=== PATIENT | female | born 1985 | race Caucasian/White ===

== ENCOUNTER 2017-07-10 05:55 | Day surgery (SDC) | payer BC ==
[~2017-07-10] VITALS: Ht 157.5 cm; Wt 61.2 kg
[~2017-07-10 05:55] MED LIST: ASPIR-LOW81 MG PO; BIOTIN10 MG PO; FLUOXETINE HCL20 MG PO; VITAMIN D35000 UNI1 PO
--- NOTE | 2017-07-10 08:50 | NUR ---
07/10/17 0850 Torrie Heredia 9394-PATIENT ARRIVED TO PACU ON 10L MASK O2 SAT 98% NONAROUSABLE. OLIVEROS CATHETER IN PLACE WITH MARIE PAD AND GAUZE. NO DRAINAGE NOTED. PATIENT TO GO HOME WITH 20 CC SYRINGE WILL REMOVE OWN OLIVEROS CATHETER AT HOME.
--- NOTE | 2017-07-10 09:29 | NUR ---
ICED WATER AND CRACKERS GIVEN. PT DRINKING AND EATING AND TOLERATING THAT WELL. CALL LIGHT W/IN REACH. FAMILY @ BS.
--- NOTE | 2017-07-10 09:41 | NUR ---
MORE ICED WATER GIVEN.
--- NOTE | 2017-07-10 11:31 | NUR ---
8125 DR NG CALLED AND PT CAN GO HOME WITH LEG BAG. THIS CHGED OUT AND PT AND MOTHER INSTRUCTED ON USE, AND DCING CATHETER IN 3 DAYS, HOW TO USE MARIE BOTTLE. NO QUESTIONS.
--- NOTE | 2017-07-10 11:33 | NUR ---
1110 400MLS FROM OLIVEROS BAG.
--- NOTE | 2017-07-15 08:52 | OR ---
[facility] [address] [place] [id number] Signed DATE OF OPERATION: 07/10/2017 SURGEON: Shravan Ng MD PREOPERATIVE DIAGNOSIS: Urethral cyst. POSTOPERATIVE DIAGNOSIS: Urethral cyst. NAMES OF PROCEDURES: 1. Diagnostic cystoscopy. 2. Urethral cyst excision. PRIMARY SURGEON: Shravan Ng MD HEAT AND FROST INSULATOR: Ovidio Berry MD NOTE: Dr. Berry was present throughout the entire case and assisted with dissection along with decortication of the urethral cyst. COMPLICATIONS: None. SPECIMENS: Sac of urethral cyst, sent to Pathology for evaluation. DRAINS: A 16-Bahraini Salguero catheter, connected to gravity drainage. ESTIMATED BLOOD LOSS: Minimal. INDICATIONS FOR PROCEDURE: Ms. Beth is a very pleasant 31-year-old female with a 2 to 3 year history of a tender mass present near her urethra. It had been incised and drained multiple times in the past. However, it continued to return and cause the patient discomfort. Physical Electronically Signed By: SHRAVAN NG MD 07/15/17 0852 PATIENT NAME: REGGIE BETH OPERATIVE REPORT DATE OF : 81 PHYSICIAN: SHRAVAN NG MD REPORT #: [id number] REPORT IS CONFIDENTIAL AND NOT TO BE RELEASED WITHOUT AUTHORIZATION [facility] [address] [place] [id number] Signed examination at the time of her office visit revealed the presence of a urethral cyst at the 3 o'clock position. At that time, the patient requested to undergo elective excision of her urethral cyst as it was beginning to affect her quality of life. After a discussion of the risks and benefits of the procedure including bleeding, infection, and damage to urethra and urinary sphincter, the patient elected to go ahead and with the procedure. OPERATIVE FINDINGS: 1. On cystoscopy, there was no evidence of any suspicious masses, lesions, or stones within the bladder. Bilateral ureteral orifices are normal in anatomic location. 2. Urethroscopy revealed no evidence of cyst involvement of the urethra. There was no evidence of an ostia into a urethral diverticulum, etc. The 2.5 cm well-circumscribed cyst was dissected free from the periurethral tissues. During the dissection, the cyst was ruptured unintentionally. However, we were successfully able to dissect the wall of the cyst free from the periurethral tissue without difficulty. 3. Postoperative urethroscopy revealed no evidence of any iatrogenic damage to the urethra, i.e., no evidence of sutures present within the urethral epithelium. DESCRIPTION OF PROCEDURE: After an informed consent was obtained, the patient was taken back to the operating room and she was placed in the supine position and general anesthesia was induced. She was then placed in the dorsal lithotomy position and her genitalia were prepped and draped in a standard sterile fashion. A Sergio retractor was placed over the vaginal area, which allowed for proper retraction of the labia. Diagnostic cystoscopy was initially performed. Please see the above findings. Then, a 16-Bahraini Salguero catheter was inserted into the patient's bladder and her bladder was drained completely and the Salguero catheter was satisfied. A #15 blade was then used to make an approximately 2 cm incision into the periurethral epithelium. Metzenbaum scissors were then used to gently dissect this epithelium off the cyst wall. Once we were about mcfp through the dissection, the cyst wall was punctured inadvertently during dissection and the cyst was drained of purulent material. Using an Allis, we maintained hold of the urethral cyst wall and continued to dissect the cyst wall from the periurethral tissue. Although while electrocautery was used as needed to maintain hemostasis. The cyst wall was then fully excised and placed in a specimen cup to be sent to pathology. The resection bed was then gently cauterized and a pressure was placed on the area as well to minimize oozing. Once I was satisfied that any significant bleeding had been taken care of, the area of resection was then closed in two deep layers using 2-0 Vicryl in a simple interrupted fashion. The periurethral epithelium was then closed also in a simple interrupted fashion using 4-0 Vicryl. There was a small buttonhole just about 0.5 cm away from the urethral meatus at the 3 o'clock position that was created during retraction. This was closed separately also using a 4-0 Vicryl. Once the incision was closed, the area was clean and dried. A repeat cystoscopy was performed to be sure that there was no Electronically Signed By: SHRAVAN NG MD 07/15/17 0852 PATIENT NAME: REGGIE BETH OPERATIVE REPORT DATE OF : 81 PHYSICIAN: SHRAVAN NG MD REPORT #: [id number] REPORT IS CONFIDENTIAL AND NOT TO BE RELEASED WITHOUT AUTHORIZATION [address] [id number] Signed iatrogenic damage involving the urethra with all of the suture placement performed. The 16-Bahraini Salguero was then re-inserted into the patient's bladder and connected back to gravity drainage. The procedure was then terminated. The patient tolerated the procedure well without any complication. She will now be transferred to the postanesthesia care unit in stable condition. DISPOSITION: I discussed the details of today's procedure with Reggie's mother and answered all of her questions. She will be sent home with Keflex 500 mg p.o. b.i.d. for a total of 7 days, along with Percocet 5/325 #30 q.6 hours p.r.n. pain. The patient will keep the Salguero catheter to gravity drainage for the next 4 days. She has been given a Luer-Rosemarie syringe to allow her to remove the catheter on her own at home in 4 days. After that, she will use a spray bottle to spray water in the area during and after voiding to keep the urine from irritating her incision. She will be scheduled to return to clinic in approximately 2 weeks for a postoperative evaluation. MD TILA Momin/RJL /[id number] Electronically Signed By: SHRAVAN NG MD 07/15/17 0852 PATIENT NAME: REGGIE BETH OPERATIVE REPORT DATE OF : 81 PHYSICIAN: SHRAVAN NG MD REPORT #: [id number] REPORT IS CONFIDENTIAL AND NOT TO BE RELEASED WITHOUT AUTHORIZATION
== END 2017-07-10 11:10 | disposition home or self-care (01) ==
LOC: DS 05:55
PROVIDERS: Urology
PROC: 0TBD0ZZ Excision of Urethra, Open Approach (ICD-10-PCS; principal; 2017-07-10 06:45)
PROC: 0TJB8ZZ Inspection of Bladder, Via Natural or Artificial Opening Endoscopic (ICD-10-PCS; 2017-07-10 06:45)
DX: N36.8 Other specified disorders of urethra (principal); Z79.82 Long term (current) use of aspirin; Z79.899 Other long term (current) drug therapy; Z98.890 Other specified postprocedural states
CPT/HCPCS: 00910; J0696; J1100; J1885; J2250; J2405; J2704; J3010; J7120